=== PATIENT | female | born 1995 | race Caucasian/White ===

== ENCOUNTER 2019-08-05 20:28 | Emergency (ER) | payer OTHER ==
[~2019-08-05] VITALS: Ht 167.6 cm; Wt 61.2 kg
[2019-08-05] MEDS ORDERED: ONDANSETRON HCL/PF 4 MG/2 ML VIAL ONE (21:00)
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
[2019-08-05 21:06] LABS: BASOPHILS # (AUTO) 0.2 /CMM (0.0-0.2); BASOPHILS % (AUTO) 1.8 % (0.0-2.0); EOSINOPHILS % (AUTO) 0.3 % (0.0-6.0); HEMATOCRIT 44 % (33-45); HEMOGLOBIN 14.5 g/dL (11.5-14.8); LYMPHOCYTES # (AUTO) 1.9 /CMM (0.8-4.8); LYMPHOCYTES % (AUTO) 21.1 % (20.0-44.0); MEAN CORPUSCULAR HGB CONC 33 g/dl (31.0-36.0); MEAN CORPUSCULAR VOLUME 89 fL (82-100); MONOCYTES # (AUTO) 0.5 /CMM (0.1-1.30); MONOCYTES % (AUTO) 5.6 % (2.0-12.0); NEUTROPHILS # (AUTO) 6.3 /CMM (1.8-8.9); NEUTROPHILS % (AUTO) 71.2 % (43.0-81.0); PLATELET COUNT (AUTO) 431 /CMM (150-450); RED BLOOD CELL COUNT(AUTO) 4.97 MIL/uL (4.0-5.2); WHITE BLOOD COUNT (AUTO) 8.9 K/uL (4.3-11.0)
[2019-08-05] MEDS: IV NS 0.9% 1,000 ML BAG IV ONE (21:15)
[2019-08-05] MEDS: ONDANSETRON HCL/PF 4 MG/2 ML VIAL IVP ONE (21:17)
[2019-08-05 21:19] LABS: ALBUMIN 4.6 g/dL (3.4-5.0); BILIRUBIN,TOTAL 0.2 mg/dL (0.2-1.0); CREATININE 0.8 mg/dL (0.6-1.3); POTASSIUM 3.5 mmol/L (3.5-5.1); TOTAL PROTEIN, SERUM 8.7 g/dL (6.4-8.2)
[2019-08-05 21:39] LABS: ALCOHOL, BLOOD 307 mg/dL (0-0)
--- NOTE | 2019-08-06 00:06 | NUR ---
PT IN BED SLEEPING. NAD NOTED
--- NOTE | 2019-08-06 05:17 | NUR ---
PT IN BED SLEEPING. EASILY ARROUSABLE. NAD NOTED
--- NOTE | 2019-08-06 05:48 | NUR ---
PT C/O HEADACHE. MD MADE AWARE. ORDER RECEIVED FOR TYLENOL 650MG PO X 1. NOTED AND CARRIED OUT
[2019-08-06] MEDS ORDERED: ACETAMINOPHEN 325 MG TABLET ONE (05:49)
[2019-08-06] MEDS: ACETAMINOPHEN 325 MG TABLET PO ONE (05:50)
--- NOTE | 2019-08-06 06:16 | NUR ---
Patient discharged to home in stable condition. Written and verbal after care instructions given. Patient verbalizes understanding of instruction.IV removed. Catheter intact and site benign. Pressure and 4x4 applied to site. No bleeding noted. Pt ambulatory with a steady gait
--- NOTE | 2019-08-06 06:16 | NUR ---
Terry andino in EDM - 08/06/19 at 0619 by SAVAGE Patient discharged to home in stable condition. Written and verbal after care instructions given. Patient verbalizes understanding of instruction. Pt ambulatory with a steady gait
[2019-08-06 06:17] VITALS: BP 112/63
== END 2019-08-06 06:20 | disposition home or self-care (01) ==
LOC: ER 20:30
DX: R41.82 Altered mental status, unspecified (principal); F10.129 Alcohol abuse with intoxication, unspecified; Y90.8 Blood alcohol level of 240 mg/100 ml or more
CPT/HCPCS: 36415; 80048; 80076; 80307; 84702; 85025; 96361; 96374; 99283; J2405; J7030; G0480

== ENCOUNTER 2019-09-20 15:06 | Emergency (ER) | payer OTHER ==
[~2019-09-20] VITALS: Ht 165.1 cm; Wt 68.0 kg
--- NOTE | 2019-09-20 15:27 | NUR ---
PT AAOX4. AMBULATORY C/O DYSURIA SINCE WEEK OF AUGUST/2019. PLACED IN BED. URIEN COLLECTED AND SENT TO LAB. NO ACUTE DISTRESS NOTED. FRANSICO SESAY FOR EVETIENNE. VSS.
[2019-09-20 15:38] LABS: BILIRUBIN,URINE Negative (NEGATIVE); BLOOD, URINE Negative Ery/uL (NEGATIVE); COLOR,URINE Yellow (YELLOW); KETONES,URINE Negative (NEGATIVE); LEUKOCYTE ESTERASE ,URINE Trace (NEGATIVE); NITRITE, URINE Negative (NEGATIVE); PROTEIN,URINE Negative (NEGATIVE); UGLUCOSE Negative (NEGATIVE); UROBILINOGEN,URINE 0.2 EU/dL (0.2)
[2019-09-20 15:40] LABS: APPEARANCE,URINE SLIGHTLY HAZY (CLEAR)
[2019-09-20 15:43] LABS: BACTERIA,URINE None seen /HPF (None Seen); RBC,URINE 0-1 /HPF (0-2); SQUAMOUS EPITHELIAL CELL,UR Few /HPF (None Seen); URINE AMORPHOUS PHOSPHATES Many /HPF (None Seen)
--- NOTE | 2019-09-20 17:27 | NUR ---
Patient discharged to home in stable condition. Written and verbal after care instructions given. Patient verbalizes understanding of instruction and RX. PT ambulatory with a steady gait.
[2019-09-20 17:28] VITALS: BP 126/78
[2019-09-21 10:07] LABS: HIV SCRN 4G wRFX Non Reactive (Non Reactive)
== END 2019-09-20 17:32 | disposition home or self-care (01) ==
LOC: ER 15:07
DX: T76.21XA Adult sexual abuse, suspected, initial encounter (principal); N76.0 Acute vaginitis; F10.10 Alcohol abuse, uncomplicated; Y90.9 Presence of alcohol in blood, level not specified
CPT/HCPCS: 36415; 80074; 81000-TC; 84703-TC; 87110-TC; 87210-TC; 87491; 87591

== ENCOUNTER 2019-10-18 20:06 | Emergency (ER) | payer OTHER ==
[~2019-10-18] VITALS: Ht 165.1 cm; Wt 72.6 kg
--- NOTE | 2019-10-18 20:34 | NUR ---
PT BIBS FOR C/O R FLANK PAIN X 2 WKS. +DYSURIA W/ BAD ODOR. HEMATURIA C/O DARK URINE COLOR. PT AAOX4, RR EVEN AND UNLABORED ON RA W/ NAD NOTED. PT CONNECTED TO THE MONITOR AND POX.
--- NOTE | 2019-10-18 21:03 | NUR ---
URINE COLLECTED AND SENT TO LAB
[2019-10-18 21:21] LABS: APPEARANCE,URINE CLEAR (CLEAR); BILIRUBIN,URINE NEGATIVE (NEGATIVE); BLOOD, URINE NEGATIVE Ery/uL (NEGATIVE); COLOR,URINE YELLOW (YELLOW); KETONES,URINE NEGATIVE (NEGATIVE); LEUKOCYTE ESTERASE ,URINE NEGATIVE (NEGATIVE); NITRITE, URINE NEGATIVE (NEGATIVE); PH,URINE 5.5 (5.0-8.0); PROTEIN,URINE NEGATIVE (NEGATIVE); UGLUCOSE NEGATIVE (NEGATIVE); UROBILINOGEN,URINE 0.2 EU/dL (0.2)
[2019-10-18] MEDS ORDERED: ONDANSETRON 4 MG TAB.RAPDIS ONE (21:57)
[2019-10-18] MEDS ORDERED: HYDROCODONE/APAP 5/325MG 1 EACH TABLET ONE (21:57)
[2019-10-18] MEDS ORDERED: HYDROCODONE/APAP 5/325MG 1 EACH TABLET PO ONE (22:00)
[2019-10-18] MEDS ORDERED: ONDANSETRON 4 MG TAB.RAPDIS SL ONE (22:00)
[2019-10-18 22:07] VITALS: BP 117/89
--- NOTE | 2019-10-18 22:07 | NUR ---
Patient discharged to home in stable condition. Written and verbal after care instructions given. Patient verbalizes understanding of instruction.ambulatory with a steady gait
== END 2019-10-18 22:09 | disposition home or self-care (01) ==
LOC: ER 20:09
DX: M54.41 Lumbago with sciatica, right side (principal); Z98.890 Other specified postprocedural states
CPT/HCPCS: 81001; 84703; 99283; Q0162; 81000-TC